=== PATIENT | female | born 1960 | race Two or more races ===

== ENCOUNTER 2017-01-03 14:13 | Inpatient (IN) | payer OTHER ==
[2017-01-03] MEDS ORDERED: ONDANSETRON 4 MG/2 ML VIAL IVPUSH ONE ×2 (14:47→16:05)
[2017-01-03] MEDS ORDERED: SODIUM CHLORIDE 1,000 ML IV STA ×2 (14:47→17:38)
[2017-01-03] MEDS ORDERED: HYDROmorphone HCL CARPU-JECT 1 MG/1 ML DISP.SYRIN IVPUSH ONE ×2 (14:47→16:05)
[2017-01-03] MEDS ORDERED: KETOROLAC TROMETHAMINE 30 MG/1 ML VIAL IVPUSH ONE (14:59)
[2017-01-03] MEDS ORDERED: ONDANSETRON 4 MG/2 ML VIAL ONE ×2 (15:02→16:14)
[2017-01-03] MEDS ORDERED: HYDROmorphone HCL CARPU-JECT 1 MG/1 ML DISP.SYRIN ONE ×2 (15:02→16:14)
[2017-01-03] MEDS ORDERED: KETOROLAC TROMETHAMINE 30 MG/1 ML VIAL ONE ×2 (15:02→15:03)
--- NOTE | 2017-01-03 15:15 | PDOC ---
History of Present Illness <Tomas Lynch - Last Filed: 01/03/17 18:45> - History of Present Illness Initial Comments: 01/03/17 15:37 The patient is a 52-year-old female with significant past medical history of hypertension, diabetes, hypercholesterolemia, and pancreatitis, who presents to the ED with complaint of right upper quadrant pain radiating to her right flank for 5 days. The patient states she had an MRI at [facility] which revealed pancreatitis about 8 months ago. The patient reportedly called Dr. Lopes office on to be seen, however, was unable to be seen by Dr. Wells, and presents today for increased pain. The patient also reports seeing Dr. Perdomo who reportedly told the patient she had stones. The patient reports having a cholecystectomy prior to learning of her stones. Upon chart review, the patient had a CT scan in 2012 revealing a mass in the head of the pancreas. She denies chest pain, shortness of breath, headache and dizziness. She denies fever, chills, nausea, vomit, diarrhea and constipation. She denies dysuria, frequency, urgency and hematuria. Allergies: NKDA Past surgical history: cholecystectomy, x2 Social history: Pt denies current tobacco use (quit 15 yrs ago from 2ppd). Pt reports occasional consumption of wine. Family History: pancreatic cancer (maternal aunt) PCP - Dr. Wells GI - Dr. Perdomo <Mitzi Jolly - Last Filed: 01/03/17 19:51> - General Chief Complaint: Pain Stated Complaint: PAIN r/o pancereatitis Time Seen by Provider: 01/03/17 14:38 Past History - Past Medical History Diabetes: Yes GI Disorders: Yes (pancreatitis) HTN: Yes - Surgical History Cholecystectomy: Yes - Suicide/Smoking/Psychosocial Hx Smoking Status: No Smoking History: Never smoked Number of Cigarettes Smoked Daily: 0 Information on smoking cessation initiated: No Hx Alcohol Use: No Drug/Substance Use Hx: No Substance Use Type: None <Tomas Lynch - Last Filed: 01/03/17 18:45> <Mitzi Jolly - Last Filed: 01/03/17 19:51> - Past Medical History Allergies/Adverse Reactions: Allergies Allergy/AdvReac Type Severity Reaction Status Date / Time No Known Allergies Allergy Verified 01/03/17 14:14 Home Medications: Ambulatory Orders Amlodipine Besylate/Benazepril [Lotrel 5-40 mg Capsule] 1 each PO DAILY Metformin HCl [Glucophage -] 500 mg PO DAILY 01/03/17 Triamterene/Hydrochlorothiazid [Triamterene-Hctz 37.5-25 mg Tb] 1 each PO DAILY 01/03/17 Ursodiol [Actigal] 300 mg PO DAILY 01/03/17 Review of Systems - Review of Systems Able to Perform ROS?: Yes Comments:: 01/03/17 15:38 GENERAL/CONSTITUTIONAL: No fever or chills. No weakness. HEAD, EYES, EARS, NOSE AND THROAT: No change in vision. No ear pain or discharge. No sore throat. CARDIOVASCULAR: No chest pain or shortness of breath. RESPIRATORY: No cough, wheezing, or hemoptysis. GASTROINTESTINAL: (+) RUQ pain radiating to right flank x 5 days. No nausea, vomiting, diarrhea or constipation. GENITOURINARY: No dysuria, frequency, or change in urination. MUSCULOSKELETAL: No joint or muscle swelling or pain. No neck or back pain. SKIN: No rash NEUROLOGIC: No headache, vertigo, loss of consciousness, or change in strength/ sensation. ENDOCRINE: No increased thirst. No abnormal weight change. HEMATOLOGIC/LYMPHATIC: No anemia, easy bleeding, or history of blood clots. ALLERGIC/IMMUNOLOGIC: No hives or skin allergy. <Mitzi Jolly - Last Filed: 01/03/17 19:51> *Physical Exam - Vital Signs Last Vital Signs Temp Pulse Resp BP Pulse Ox 98.4 F 79 18 154/86 100 01/03/17 14:15 01/03/17 14:15 01/03/17 14:15 01/03/17 14:15 01/03/17 14:15 <Tomas Lynch - Last Filed: 01/03/17 18:45> - Vital Signs Last Vital Signs Temp Pulse Resp BP Pulse Ox 98.4 F 79 18 154/86 100 01/03/17 14:15 01/03/17 14:15 01/03/17 14:15 01/03/17 14:15 01/03/17 14:15 - Physical Exam Comments: 01/03/17 15:39 GENERAL: Awake, alert, and fully oriented, in no acute distress HEAD: No signs of trauma EYES: PERRLA, EOMI, sclera anicteric, conjunctiva clear ENT: Auricles normal inspection, hearing grossly normal, nares patent, oropharynx clear without exudates. Moist mucosa NECK: Normal ROM, supple, no lymphadenopathy, JVD, or masses LUNGS: Breath sounds equal, clear to auscultation bilaterally. No wheezes, and no crackles HEART: Regular rate and rhythm, normal S1 and S2, no murmurs, rubs or gallops ABDOMEN: (+) mildly ttp to RUQ. Soft, normoactive bowel sounds. No guarding, no rebound. No masses EXTREMITIES: Normal range of motion, no edema. No clubbing or cyanosis. No cords, erythema, or tenderness NEUROLOGICAL: Cranial nerves II through XII grossly intact. Normal speech, normal gait SKIN: Warm, Dry, normal turgor, no rashes or lesions noted. <Mitzi Jolly - Last Filed: 01/03/17 19:51> ED Treatment Course - LABORATORY CBC & Chemistry Diagram: 01/03/17 15:00 01/03/17 15:00 - RADIOLOGY Radiology Studies Ordered: Category Date Time Status ABDOMEN & PELVIS CT WITH CONTR [CT] Stat CT Scan 01/03/17 14:43 Ordered <Tomas Lynch - Last Filed: 01/03/17 18:45> - LABORATORY CBC & Chemistry Diagram: 01/03/17 15:00 01/03/17 15:00 - ADDITIONAL ORDERS Additional order review: Laboratory Results 01/03/17 01/03/17 15:00 15:00 Sodium 138 Potassium 3.8 Chloride 103 Carbon Dioxide 29 Anion Gap 6 L BUN 20 H D Creatinine 1.2 H D Creat Clearance w eGFR 46.14 Random Glucose 207 H D Calcium 9.7 Total Bilirubin 0.2 D AST 8 L D ALT 19 D Alkaline Phosphatase 99 D Total Protein 7.9 Albumin 3.8 Lipase 720 H Urine Color Yellow Urine Appearance Slcloudy Urine pH 5.0 Urine Protein Negative Urine Glucose (UA) Negative Urine Ketones Negative Urine Blood Negative Urine Nitrite Negative Urine Bilirubin Negative Urine Urobilinogen Negative 01/03/17 15:00 RBC 3.94 MCV 94.6 MCHC 33.2 RDW 13.6 MPV 9.5 Neutrophils % 71.3 Lymphocytes % 21.7 Monocytes % 5.3 Eosinophils % 1.2 Basophils % 0.5 - RADIOLOGY Radiograph Interpretation: EXAM#: TYPE/EXAM: RESULT: [id number] CT/ABDOMEN PELVIS CT W/WO CONTR Rule out pancreatitis. CT scan of the abdomen and pelvis without and following intravenous contrast. Oral contrast was administered. Pancreatitis departmental protocol was follow-up. 95 cc of Visipaque 320 was intravenously injected. Compared to prior CT scan of the abdomen and pelvis dated 06/02/2012 The heart is within normal limits in size. Included lung base appears unremarkable The stomach is adequately distended without wall thickening. Evaluation of the liver and spleen appear unremarkable. Postcholecystectomy surgical metallic clips are present with minimal dilatation of the central intrahepatic bile ducts. Common bile duct is not dilated. Both adrenal glands and both kidneys appear unremarkable. The pancreas is within normal limits in size. Previously visualized focal low- attenuation density along superior margin of the pancreatic head is again seen measuring approximately 1.5 x 0.7 cm and up to -50 Hounsfield units that may represent focal fatty infiltration or a small lipoma. Peripancreatic mesentery is unremarkable without evidence of stranding or edema. There is no evidence of small bowel obstruction. Normal-appearing terminal ileum and appendix. Normal stool burden in the colon with multiple diverticula mainly in the sigmoid colon and without evidence of acute diverticulitis. Partially distended urinary bladder without wall thickening. Nonvisualization of the uterus. Both ovaries were not visualized. Visualized osseous structures appear intact with moderate degenerative disc disease at L5-S1 level. Impression: Status post cholecystectomy. There is no CT evidence of acute pancreatitis. However, a focal low- attenuation density is again seen along anterior margin of the pancreatic head measuring 1.5 x 0.8 cm and approximately -50 Hounsfield units that may represent small focal area of fatty infiltration or lipoma. Correlation with contrast-enhanced MRI of the abdomen is recommended considering prior MRI of the abdomen findings dated 06/05/2012 where an approximately 9 mm lesion in the region of the of ampulla of vater was questioned. Reported By: Mook Lozano MD 01/03/171941 - Medications Given in the ED: ED Medications Discontinued Medications Generic Name Dose Route Start Last Admin Trade Name Freq PRN Reason Stop Dose Admin Hydromorphone HCl 1 mg 01/03/17 14:47 01/03/17 15:00 Dilaudid Injection - IVPUSH 01/03/17 14:48 1 mg ONCE ONE Administration Ketorolac Tromethamine 30 mg 01/03/17 14:59 01/03/17 15:00 Toradol Injection - IVPUSH 01/03/17 15:00 30 mg ONCE ONE Administration Ondansetron HCl 4 mg 01/03/17 14:47 01/03/17 15:00 Zofran Injection IVPUSH 01/03/17 14:48 4 mg ONCE ONE Administration <Mitzi Jolly - Last Filed: 01/03/17 19:51> Medical Decision Making - Medical Decision Making 01/03/17 18:34 Dr. Gisella Weiner was paged at this time via phone answering service requesting a callback for admission of this patient for Dr. Wells. 01/03/17 18:44 Dr. Barclay returned the call and the patient's case was discussed. Dr. Barclay accepts admission of this patient with consult to Dr. Perdomo. <Mitzi Jolly - Last Filed: 01/03/17 19:51> *DC/Admit/Observation/Transfer - Discharge Dispostion Admit: Yes - Attestations Physician Attestion: 01/03/17 15:15 I, Dr. Tomas Lynch, attest that this document has been prepared under my direction and personally reviewed by me in its entirety. I further attest, that it accurately reflects all work, treatment, procedures and medical decision -making performed by me. <Tomas Lynch - Last Filed: 01/03/17 18:45> - Attestations Scribe Attestion: 01/03/17 15:39 Documentation prepared by Mitzi Jolly, acting as certified medical coder for Tomas Lynch DO <Mitzi Jolly - Last Filed: 01/03/17 19:51> Diagnosis at time of Disposition: Intractable abdominal pain Pancreatitis Qualifiers: Chronicity: acute Pancreatitis type: other Acute pancreatitis complication: unspecified Qualified Code(s): K85.80 - Other acute pancreatitis without necrosis or infection - Discharge Dispostion Disposition: HOME Condition at time of disposition: Unchanged/Unknown - Referrals Referrals: Luigi Wells MD [Primary Care Provider] -
[2017-01-03 15:22] LABS: BASOPHIL 0.5 % (0-2.0); EOSINOPHIL 1.2 % (0-4.5); MCH 31.4 pg (25.7-33.7); MCHC 33.2 g/dl (32.0-36.0); MEAN CELL VOLUME 94.6 fl (80-96); MEAN PLT VOLUME 9.5 fl (7.5-11.1); NEUTROPHILS 71.3 % (42.8-82.8); PLATELET COUNT 302 K/MM3 (134-434); RDW 13.6 % (11.6-15.6); WHITE BLOOD COUNT 9.9 K/mm3 (4.0-10.0)
[2017-01-03 15:24] LABS: URINE APPEARANCE SLCLOUDY; URINE BILIRUBIN NEGATIVE (NEGATIVE); URINE BLOOD NEGATIVE (NEGATIVE); URINE COLOR YELLOW; URINE GLUCOSE (UA) NEGATIVE (NEGATIVE); URINE KETONE NEGATIVE (NEGATIVE); URINE NITRITE NEGATIVE (NEGATIVE); URINE PROTEIN NEGATIVE (NEGATIVE); URINE UROBILINOGEN NEGATIVE mg/dL (0.2-1.0)
[2017-01-03 15:36] LABS: ALBUMIN 3.8 g/dl (3.4-5.0); ALK PHOS 99 U/L (45-117); ANION GAP 6 (8-16); BILIRUBIN,TOTAL 0.2 mg/dL (0.2-1.0); CALCIUM 9.7 mg/dL (8.5-10.1); CO2 29 mmol/L (21-32); CREATININE 1.2 mg/dL (0.55-1.02); GLUCOSE,RANDOM 207 mg/dL (74-106); SGOT/AST 8 U/L (15-37); SGPT/ALT 19 U/L (12-78); TOT PROT 7.9 g/dl (6.4-8.2)
[2017-01-03 18:13] LABS: INR 0.98 (0.82-1.09); PROTHROMBIN TIME (PATIENT) 10.8 SEC (9.98-11.88)
[2017-01-03] MEDS ORDERED: HYDROmorphone HCL CARPU-JECT 2 MG/1 ML DISP.SYRIN IVPB ONE (18:28)
[2017-01-03] MEDS ORDERED: HYDROmorphone HCL CARPU-JECT 2 MG/1 ML DISP.SYRIN ONE (18:37)
[2017-01-03 20:06] LABS: URINE LEUK ESTERASE Negative (NEGATIVE)
[2017-01-03] MEDS: SODIUM CHLORIDE 1,000 ML IV SCH (22:04)
[2017-01-03] MEDS: morphine CARPU-JECT 4 MG/1 ML DISP.SYRIN IVPUSH PRN (22:08)
[2017-01-03] MEDS ORDERED: ZOLPIDEM TARTRATE 5 MG TABLET PO PRN (22:20)
[2017-01-04 00:10] VITALS: BMI 31.6
[2017-01-04] MEDS: morphine CARPU-JECT 4 MG/1 ML DISP.SYRIN IVPUSH PRN (01:27)
[2017-01-04] MEDS: SODIUM CHLORIDE 1,000 ML IV SCH ×2 (04:04→14:27)
[2017-01-04] MEDS ORDERED: metFORMIN HCL 500 MG TABLET (FP) PO SCH (07:00)
[2017-01-04 07:31] LABS: BASOPHIL 0.4 % (0-2.0); EOSINOPHIL 1.5 % (0-4.5); MCH 31.3 pg (25.7-33.7); MCHC 33.1 g/dl (32.0-36.0); MEAN CELL VOLUME 94.4 fl (80-96); MEAN PLT VOLUME 9.3 fl (7.5-11.1); NEUTROPHILS 57.3 % (42.8-82.8); PLATELET COUNT 217 K/MM3 (134-434); RDW 13.2 % (11.6-15.6); WHITE BLOOD COUNT 6.1 K/mm3 (4.0-10.0)
[2017-01-04 07:52] LABS: ALBUMIN 2.8 g/dl (3.4-5.0); CALCIUM 8.7 mg/dL (8.5-10.1)
[2017-01-04 07:57] LABS: ALK PHOS 69 U/L (45-117); ANION GAP 8 (8-16); BILIRUBIN,TOTAL 0.3 mg/dL (0.2-1.0); CO2 25 mmol/L (21-32); CREATININE 0.8 mg/dL (0.55-1.02); GLUCOSE,RANDOM 102 mg/dL (74-106); SGOT/AST 8 U/L (15-37); SGPT/ALT 16 U/L (12-78); TOT PROT 5.8 g/dl (6.4-8.2)
[2017-01-04] MEDS ORDERED: morphine CARPU-JECT 2 MG/1 ML DISP.SYRIN IVPUSH PRN (09:13)
[2017-01-04] MEDS: URSODIOL 300 MG CAPSULE PO SCH (09:18)
[2017-01-04] MEDS: amLODIPine BESYLATE 5 MG TABLET (FP) PO SCH (09:19)
[2017-01-04] MEDS: LISINOPRIL 20 MG TABLET (FP) PO SCH (09:19)
[2017-01-04] MEDS: TRIAMTERENE AND HCTZ - 37.5 MG/25 MG CAPSULE PO SCH (09:21)
[2017-01-04] MEDS ORDERED: PT OWN MED DRAWER 7, Y5N ONE (09:21)
[2017-01-04] MEDS ORDERED: PATIENT'S OWN MEDICATION (NON-FORMULARY) (Amlodipine Besylate/Benazepril [Lotrel 5-40 Mg C PO SCH (10:00)
[2017-01-04] MEDS ORDERED: PATIENT'S OWN MEDICATION (NON-FORMULARY) (Triamterene/Hydrochlorothiazid [Triamterene-Hctz PO SCH (10:00)
--- NOTE | 2017-01-04 10:38 | HP ---
Admitting History and Physical - Primary Care Physician PCP: Luigi Wells - Admission Chief Complaint: abdominal pain History of Present Illness: -ER HISTORY-- History of Present Illness Initial Comments: 01/03/17 15:37 The patient is a 52-year-old female with significant past medical history of hypertension, diabetes, hypercholesterolemia, and pancreatitis, who presents to the ED with complaint of right upper quadrant pain radiating to her right flank for 5 days. The patient states she had an MRI at [facility] which revealed pancreatitis about 8 months ago. The patient reportedly called Dr. Lopes office on to be seen, however, was unable to be seen by Dr. Wells, and presents today for increased pain. The patient also reports seeing Dr. Perdomo who reportedly told the patient she had stones. The patient reports having a cholecystectomy prior to learning of her stones. Upon chart review, the patient had a CT scan in 2012 revealing a mass in the head of the pancreas. She denies chest pain, shortness of breath, headache and dizziness. She denies fever, chills, nausea, vomit, diarrhea and constipation. She denies dysuria, frequency, urgency and hematuria. Allergies: NKDA Past surgical history: cholecystectomy, x2 Social history: Pt denies current tobacco use (quit 15 yrs ago from 2ppd). Pt reports occasional consumption of wine. Family History: pancreatic cancer (maternal aunt) PCP - Dr. Wells GI - Dr. Perdomo Pt examined by me on the floors Severe right sided abdominal and epigastric pain for last few days- nauseous. Not related with food intake or positional changes. No fever, vomiting, diarrhea , urinary complaints. Rates it 01/04. Pain radiating to right flank Had seen by GI as an out pt 2 months ago and was placed on Actigall Denies any unusual food intake Similar history in June this year- was admitted in [facility]-- CT had shown-- prominent pancreas per pt-was teated for pancreatitis there History Source: Patient Limitations to Obtaining History: No Limitations - Past Medical History Cardiovascular: Yes: HTN Endocrine: Yes: Diabetes Mellitus - Smoking History Smoking history: Former smoker Have you smoked in the past 12 months: No Aproximately how many cigarettes per day: 0 - Alcohol/Substance Use Hx Alcohol Use: Yes Home Medications - Allergies Allergies/Adverse Reactions: Allergies Allergy/AdvReac Type Severity Reaction Status Date / Time No Known Allergies Allergy Verified 01/03/17 14:14 - Home Medications Home Medications: Ambulatory Orders Amlodipine Besylate/Benazepril [Lotrel 5-40 mg Capsule] 1 each PO DAILY Metformin HCl [Glucophage -] 500 mg PO DAILY 01/03/17 Triamterene/Hydrochlorothiazid [Triamterene-Hctz 37.5-25 mg Tb] 1 each PO DAILY 01/03/17 Ursodiol [Actigal] 300 mg PO DAILY 01/03/17 Review of Systems - Review of Systems Constitutional: denies: Chills, Fever, Loss of Appetite, Weakness Cardiovascular: denies: Chest Pain Respiratory: denies: Cough Gastrointestinal: reports: Abdominal Pain, Nausea. denies: Constipation, Diarrhea, Indigestion, Vomiting Genitourinary: denies: Burning, Discharge, Dysuria, Flank Pain, Frequency Physical Examination Vital Signs: Vital Signs Temperature 98.1 F 01/04/17 09:17 Pulse Rate 51 L 01/04/17 09:17 Respiratory Rate 18 01/04/17 09:17 Blood Pressure 113/50 01/04/17 09:17 O2 Sat by Pulse Oximetry (%) 100 01/04/17 00:04 Constitutional: Yes: Moderate Distress Cardiovascular: Yes: Regular Rate and Rhythm Respiratory: Yes: CTA Bilaterally Gastrointestinal: Yes: Normal Bowel Sounds, Soft, Abdomen, Obese, Tenderness ( right upper quadrant, epigastrium and rt flank) Edema: No Psychiatric: Yes: Alert, Oriented Labs: CBC, BMP 01/04/17 06:00 01/04/17 06:00 Imaging - Results Cat Scan: Report Reviewed EKG: Image Reviewed (NSR) Problem List - Problems (1) Intractable abdominal pain Code(s): R10.9 - UNSPECIFIED ABDOMINAL PAIN (2) Pancreatitis Code(s): K85.90 - ACUTE PANCREATITIS WITHOUT NECROSIS OR INFECTION, UNSP Qualifiers: Chronicity: acute Pancreatitis type: other Acute pancreatitis complication: unspecified Qualified Code(s): K85.80 - Other acute pancreatitis without necrosis or infection; K85.80 - Other acute pancreatitis without necrosis or infection (3) HTN (hypertension) Code(s): I10 - ESSENTIAL (PRIMARY) HYPERTENSION (4) Diabetes Code(s): E11.9 - TYPE 2 DIABETES MELLITUS WITHOUT COMPLICATIONS Assessment/Plan PLAN Keep NPO CT abd noted-- prominent pancreas-- will need to assess it further with MRI with contrast check tumor markers IV fluids Zofran as needed Pain control GI eval continue with HTN meds Hold off Metformin as she is NPO DVT prophylaxis-- Lovenox sc
[2017-01-04 13:16] LABS: CHOLESTEROL 174 mg/dL (50-200)
[2017-01-04] MEDS: HYDROmorphone HCL CARPU-JECT 2 MG/1 ML DISP.SYRIN IVPB PRN ×2 (14:28→20:27)
--- NOTE | 2017-01-04 15:31 | CON.GI ---
Consult Consult Specialty:: gastroenterology Referred by:: Dr Rossy Barclay Reason for Consultation:: abdominal pain - History of Present Illness History of Present Illness: 56 y/o F with PMH of idiopathic pancreatitis associated with ruq pain was admitted because of worsening abdominal pain. She was suppose to see Dr Gen Wolf for EUS. Eus was never done She cancelled her appointments twice. 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 She is on ARB and diuretic as an outpatient. She continue to have abdominal pain. - Past Medical History Cardio/Vascular: Yes: HTN Endocrine: Yes: Diabetes Mellitus - Alcohol/Substance Use Hx Alcohol Use: Yes - Smoking History Smoking history: Former smoker Have you smoked in the past 12 months: No Aproximately how many cigarettes per day: 0 Home Medications - Allergies Allergies/Adverse Reactions: Allergies Allergy/AdvReac Type Severity Reaction Status Date / Time No Known Allergies Allergy Verified 01/03/17 14:14 - Home Medications Home Medications: Ambulatory Orders Amlodipine Besylate/Benazepril [Lotrel 5-40 mg Capsule] 1 each PO DAILY Metformin HCl [Glucophage -] 500 mg PO DAILY 01/03/17 Triamterene/Hydrochlorothiazid [Triamterene-Hctz 37.5-25 mg Tb] 1 each PO DAILY 01/03/17 Ursodiol [Actigal] 300 mg PO DAILY 01/03/17 Review of Systems - Review of Systems Constitutional: denies: No Symptoms, Chills, Diaphoresis, Fever, Lethargy, Loss of Appetite, Malaise, Night Sweats, Unintentional Wgt. Loss, Weakness, Other Eyes: denies: No Symptoms, Blind Spots, Blurred Vision, Double Vision, Eye Pain , Floaters, Photophobia, Recent Change in Vision, Other HENT: denies: No Symptoms, Difficult Swallowing, Ear Discharge, Ear Pain, Epistaxis, Gingival Bleeding, Hearing Loss, Mouth Swelling, Nasal Congestion, Ocular Prosthesis, Throat Pain, Toothache, Ringing in Ears, Other Neck: denies: No Symptoms, Decreased ROM, Lumps, Pain on Movement, Stiffness, Swollen Glands, Tenderness, Other Cardiovascular: denies: No Symptoms, Chest Pain, Edema, Palpitations, Shortness of Breath, Other Respiratory: denies: No Symptoms, Cough, Exercise Intolerance, Hemoptysis, Orthopnea, PND, Snoring, SOB, SOB on Exertion, Wheezing, Other Gastrointestinal: reports: Abdominal Pain, Nausea, Vomiting. denies: Constipation, Diarrhea, Dysphagia, Indigestion, Rectal Bleeding Physical Exam-GI Vital Signs: Vital Signs Temperature 97.9 F 01/04/17 15:12 Pulse Rate 63 01/04/17 15:12 Respiratory Rate 18 01/04/17 15:12 Blood Pressure 131/70 01/04/17 15:12 O2 Sat by Pulse Oximetry (%) 100 01/04/17 09:00 Constitutional: Yes: Well Nourished, Poor Hygeine Eyes: Yes: Occular Prosthesis HENT: Yes: Tonsillar Exudate Cardiovascular: Yes: Regular Rate and Rhythm Respiratory: Yes: CTA Bilaterally ...Palpate: Yes: Soft, Tenderness, Epigastium. No: Firm/Rigid, Guarding, Hepatomegaly, Mass, Pulsatile Mass, Splenomegaly, Tenderness Edema: No Labs: CBC, BMP 01/04/17 06:00 01/04/17 06:00 INR, PTT INR 0.98 (0.82-1.09) 01/03/17 15:00 Hepatic Panel Total Bilirubin 0.3 mg/dL (0.2-1.0) D 01/04/17 06:00 AST 8 U/L (15-37) L 01/04/17 06:00 ALT 16 U/L (12-78) 01/04/17 06:00 Alkaline Phosphatase 69 U/L (45-117) D 01/04/17 06:00 Albumin 2.8 g/dl (3.4-5.0) L D 01/04/17 06:00 CBCD WBC 6.1 K/mm3 (4.0-10.0) D 01/04/17 06:00 RBC 3.12 M/mm3 (3.60-5.2) L D 01/04/17 06:00 Hgb 9.8 GM/dL (10.7-15.3) L D 01/04/17 06:00 Hct 29.5 % (32.4-45.2) L D 01/04/17 06:00 MCV 94.4 fl (80-96) 01/04/17 06:00 MCHC 33.1 g/dl (32.0-36.0) 01/04/17 06:00 RDW 13.2 % (11.6-15.6) 01/04/17 06:00 Plt Count 217 K/MM3 (134-434) D 01/04/17 06:00 MPV 9.3 fl (7.5-11.1) 01/04/17 06:00 CMP Sodium 141 mmol/L (136-145) 01/04/17 06:00 Potassium 3.9 mmol/L (3.5-5.1) 01/04/17 06:00 Chloride 108 mmol/L (98-107) H 01/04/17 06:00 Carbon Dioxide 25 mmol/L (21-32) 01/04/17 06:00 Anion Gap 8 (8-16) 01/04/17 06:00 BUN 16 mg/dL (7-18) 01/04/17 06:00 Creatinine 0.8 mg/dL (0.55-1.02) D 01/04/17 06:00 Creat Clearance w eGFR > 60 (>60) 01/04/17 06:00 Random Glucose 102 mg/dL (74-106) D 01/04/17 06:00 Calcium 8.7 mg/dL (8.5-10.1) 01/04/17 06:00 Total Bilirubin 0.3 mg/dL (0.2-1.0) D 01/04/17 06:00 AST 8 U/L (15-37) L 01/04/17 06:00 ALT 16 U/L (12-78) 01/04/17 06:00 Alkaline Phosphatase 69 U/L (45-117) D 01/04/17 06:00 Total Protein 5.8 g/dl (6.4-8.2) L D 01/04/17 06:00 Albumin 2.8 g/dl (3.4-5.0) L D 01/04/17 06:00 Imaging - Results MRI: Report Reviewed Problem List - Problems (1) Intractable abdominal pain Assessment/Plan: r/o peptic ulcer diseae > IV PPI EGD as an outpatient Code(s): R10.9 - UNSPECIFIED ABDOMINAL PAIN (2) Idiopathic pancreatitis Assessment/Plan: RON is negative r/o drug induced R> avoid ARB, du=iuretics and statins d/c actigall Code(s): K85.00 - IDIOPATHIC ACUTE PANCREATITIS WITHOUT NECROSIS OR INFECTION
[2017-01-04] MEDS: ONDANSETRON 4 MG/2 ML VIAL IVPB PRN (16:45)
--- NOTE | 2017-01-04 18:11 | PN ---
Progress Note (short form) - Note Progress Note: came to see patient, the patient was in Mri
[2017-01-05] MEDS: HYDROmorphone HCL CARPU-JECT 2 MG/1 ML DISP.SYRIN IVPB PRN ×3 (08:52→20:00)
[2017-01-05] MEDS: ENOXAPARIN NA (PORCINE) 40 MG/0.4 ML DISP.SYRIN SQ SCH (10:11)
[2017-01-05] MEDS: LISINOPRIL 20 MG TABLET (FP) PO SCH (10:11)
[2017-01-05] MEDS: TRIAMTERENE AND HCTZ - 37.5 MG/25 MG CAPSULE PO SCH (10:11)
[2017-01-05] MEDS: URSODIOL 300 MG CAPSULE PO SCH (10:11)
[2017-01-05] MEDS: amLODIPine BESYLATE 5 MG TABLET (FP) PO SCH (10:12)
[2017-01-05] MEDS: SODIUM CHLORIDE 1,000 ML IV SCH ×3 (10:21→19:46)
--- NOTE | 2017-01-05 10:26 | PN ---
Progress Note, Physician Chief Complaint: pain better with pain medication She asking me why she's getting it every 6 hours no nausea - Current Medication List Current Medications: Active Medications Amlodipine Besylate (Norvasc -) 5 mg PO DAILY [facility] Last Admin: 01/05/17 10:12 Dose: 5 mg Enoxaparin Sodium (Lovenox -) 40 mg SQ DAILY [facility] Last Admin: 01/05/17 10:11 Dose: 40 mg Hydromorphone HCl (Dilaudid Injection -) 2 mg IVPB Q6H PRN PRN Reason: PAIN Last Admin: 01/05/17 08:52 Dose: 2 mg Sodium Chloride (Normal Saline -) 1,000 mls @ 125 mls/hr IV ASDIR [facility] Last Admin: 01/05/17 10:21 Dose: 125 mls/hr Lisinopril (Prinivil) 40 mg PO DAILY [facility] Last Admin: 01/05/17 10:11 Dose: 40 mg Ondansetron HCl (Zofran Injection) 4 mg IVPB Q6H PRN PRN Reason: NAUSEA AND/OR VOMITING Last Admin: 01/04/17 16:45 Dose: 4 mg Triamterene/HCTZ (Dyazide 25/37.5mg) 1 cap PO DAILY [facility] Last Admin: 01/05/17 10:11 Dose: 1 cap Ursodiol (Actigal -) 300 mg PO DAILY [facility] Last Admin: 01/05/17 10:11 Dose: 300 mg Zolpidem Tartrate (Ambien -) 5 mg PO HS PRN Last Admin: 01/03/17 22:29 Dose: 5 mg - Objective Vital Signs: Vital Signs Temperature 98.7 F 01/05/17 05:17 Pulse Rate 56 L 01/05/17 05:17 Respiratory Rate 20 01/05/17 05:17 Blood Pressure 116/59 01/05/17 05:17 O2 Sat by Pulse Oximetry (%) 96 01/04/17 21:00 Constitutional: Yes: No Distress Cardiovascular: Yes: Regular Rate and Rhythm Respiratory: Yes: CTA Bilaterally Gastrointestinal: Yes: Normal Bowel Sounds, Soft, Abdomen, Obese, Tenderness ( epigastric and right upper quadrant pain). No: Distention Edema: No Psychiatric: Yes: Alert, Oriented Labs: CBC, BMP 01/04/17 06:00 01/04/17 06:00 INR, PTT INR 0.98 (0.82-1.09) 01/03/17 15:00 Problem List - Problems (1) Intractable abdominal pain Code(s): R10.9 - UNSPECIFIED ABDOMINAL PAIN (2) Pancreatitis Code(s): K85.90 - ACUTE PANCREATITIS WITHOUT NECROSIS OR INFECTION, UNSP Qualifiers: Chronicity: acute Pancreatitis type: other Acute pancreatitis complication: unspecified Qualified Code(s): K85.80 - Other acute pancreatitis without necrosis or infection; K85.80 - Other acute pancreatitis without necrosis or infection (3) HTN (hypertension) Code(s): I10 - ESSENTIAL (PRIMARY) HYPERTENSION (4) Diabetes Code(s): E11.9 - TYPE 2 DIABETES MELLITUS WITHOUT COMPLICATIONS Assessment/Plan PLAN start clears CT abd noted-- prominent pancreas-- had MRI with contrast tumor markers- negative IV fluids Zofran as needed Pain control GI eval noted MRI done-- no official read continue with HTN meds decrease Dilaudid 1mg q6h DVT prophylaxis-- Lovenox sc
[2017-01-05] MEDS: ONDANSETRON 4 MG/2 ML VIAL IVPB PRN (12:43)
[2017-01-05] MEDS ORDERED: amLODIPine BESYLATE 5 MG TABLET (FP) PO SCH (19:06)
[2017-01-05] MEDS ORDERED: ONDANSETRON 4 MG/2 ML VIAL IVPB PRN (19:11)
[2017-01-05] MEDS ORDERED: PT OWN MED DRAWER 7, Y5N ONE (19:51)
[2017-01-05] MEDS: METOCLOPRAMIDE HCL INJECTION 10 MG/2 ML VIAL IVPB SCH (20:17)
[2017-01-05] MEDS: PANTOPRAZOLE SODIUM 40 MG in SODIUM CHLORIDE 100 ML IVPB SCH (21:57)
[2017-01-06] MEDS: METOCLOPRAMIDE HCL INJECTION 10 MG/2 ML VIAL IVPB SCH ×2 (01:17→10:12)
[2017-01-06] MEDS: SODIUM CHLORIDE 1,000 ML IV SCH ×2 (06:32→15:07)
[2017-01-06] MEDS ORDERED: PT OWN MED DRAWER 7, Y5N ONE (09:41)
[2017-01-06] MEDS: ENOXAPARIN NA (PORCINE) 40 MG/0.4 ML DISP.SYRIN SQ SCH (10:08)
[2017-01-06] MEDS: PANTOPRAZOLE SODIUM 40 MG in SODIUM CHLORIDE 100 ML IVPB SCH (10:08)
[2017-01-06] MEDS: HYDROmorphone HCL CARPU-JECT 2 MG/1 ML DISP.SYRIN IVPB PRN (10:26)
--- NOTE | 2017-01-06 11:43 | DS ---
Physical Examination Vital Signs: Vital Signs Temperature 98.2 F 01/06/17 06:00 Pulse Rate 48 L 01/06/17 09:00 Respiratory Rate 18 01/06/17 09:00 Blood Pressure 148/76 01/06/17 09:00 O2 Sat by Pulse Oximetry (%) 96 01/05/17 20:28 Constitutional: Yes: No Distress, Calm Cardiovascular: Yes: Regular Rate and Rhythm Respiratory: Yes: CTA Bilaterally Gastrointestinal: Yes: Normal Bowel Sounds, Soft, Tenderness (rt quadrant) Labs: CBC, BMP 01/04/17 06:00 01/04/17 06:00 Discharge Summary Reason For Visit: PANCREATITIS Current Active Problems Diabetes (Acute) HTN (hypertension) (Acute) Idiopathic pancreatitis (Acute) Intractable abdominal pain (Acute) Pancreatitis (Acute) Hospital Course: Admitted for rt abdominal pain -- felt to be due to pancreatitis-- was on iv fluids and pain control Seen by GI-- MRI abd done-- showed lipoma at the pancreas Pain is better but desizing machine back tender tolerating soft diet stable for dc home-- she will need to follow up with Dr Johnson-- plan for EUS in [facility] Condition: Improved - Instructions Referrals: Luigi Wells MD [Primary Care Provider] - Rohit Johnson MD [Staff Physician] - Disposition: HOME - Home Medications Comprehensive Discharge Medication List: Ambulatory Orders Metformin HCl [Glucophage -] 500 mg PO DAILY 01/03/17 Ursodiol [Actigal -] 300 mg PO DAILY 01/03/17 Amlodipine Besylate [Norvasc -] 10 mg PO DAILY #30 tablet 01/06/17 Metoclopramide HCl [Reglan] 10 mg PO TID #60 tablet 01/06/17 Pantoprazole Sodium [Protonix] 40 mg PO BID #20 tablet. 01/06/17
[2017-01-06 14:07] VITALS: BP 108/55; PULSE 51; TEMP 98.1
== END 2017-01-06 16:06 | disposition home or self-care (01) | DRG 282 ==
LOC: JER 14:13 → JERBED 18:46 → J7W 21:07
PROVIDERS: ADMIT Internal Medicine; ATTEND Internal Medicine
DX: K85.00 Idiopathic acute pancreatitis without necrosis or infection (principal); I10 Essential (primary) hypertension; E11.9 Type 2 diabetes mellitus without complications; E66.9 Obesity, unspecified; Z68.31 Body mass index [BMI] 31.0-31.9, adult; K76.0 Fatty (change of) liver, not elsewhere classified; E78.5 Hyperlipidemia, unspecified; R10.9 Unspecified abdominal pain
CPT/HCPCS: 36415; 74178-TC; 74182-TC; 80053; 80061; 81003; 82378; 83690; 83721; 85025; 85610; 86301; 87086; 99282-25; Q9967

== ENCOUNTER 2017-03-06 20:18 | Emergency (ER) | payer OTHER ==
--- NOTE | 2017-03-06 20:25 | PDOC ---
History of Present Illness - General Stated Complaint: ABDOMINAL PAIN Time Seen by Provider: 03/06/17 20:19 - History of Present Illness Initial Comments: 03/06/17 20:21 57 yo F with h/o HTN, NIDDM, HLD, cholycystectomy, and recent admission for pancreatitis ( 01/03-01/06) who presents with abdominal pain. Patient reports sudden onset of sharp, unremitting, stabbing, RUQ pain beginning 48 hours ago and worsening in severity. Pain worse with movement and deep inhalation. Endorses nausea without vomiting and radiation pain to the right side and back. + Lightheadedness, and decreased appetite. Denies fevers/chills, SOB, diarrhea, constipation, BPR, dysuria, hematuria. Pain is refractory to Tylenol. States that diet has been consistent with vegetables, rice, and beans. Denies postprandial pain. Alcohol use on social occasions. Last alcohol intake 6 months ago. PCP is Dr. Wells and GI physician Dr. Johnson. Recent admission for idiopathic acute pancreatitis without necrosis or infection (01/03-01/06) . MCRP (01/05/17) Prominent pancreatic head containing 2.6 x 1.2 cm fat intensity consistent with lipoma. Had negative tumor markers. EGD as outpatient with absent evidence of PUD. Past History - Past Medical History Allergies/Adverse Reactions: Allergies Allergy/AdvReac Type Severity Reaction Status Date / Time No Known Allergies Allergy Verified 03/06/17 20:23 Home Medications: Ambulatory Orders Metformin HCl [Glucophage -] 500 mg PO DAILY 01/03/17 Ursodiol [Actigal -] 300 mg PO DAILY 01/03/17 Amlodipine Besylate [Norvasc -] 10 mg PO DAILY #30 tablet 01/06/17 Metoclopramide HCl [Reglan] 10 mg PO TID #60 tablet 01/06/17 Oxycodone HCl 5 mg PO Q8H #10 tablet MDD 3 01/06/17 Pantoprazole Sodium [Protonix] 40 mg PO BID #20 tablet. 01/06/17 Diabetes: Yes GI Disorders: Yes (pancreatitis) HTN: Yes - Surgical History Cholecystectomy: Yes - Suicide/Smoking/Psychosocial Hx Smoking Status: No Smoking History: Former smoker Have you smoked in the past 12 months: No Number of Cigarettes Smoked Daily: 0 Hx Alcohol Use: Yes Drug/Substance Use Hx: No Substance Use Type: Alcohol Hx Substance Use Treatment: No Review of Systems - Review of Systems Comments:: 03/06/17 20:25 GENERAL/CONSTITUTIONAL: No fever or chills. No weakness. HEAD, EYES, EARS, NOSE AND THROAT: No change in vision. No ear pain or discharge. No sore throat.- CARDIOVASCULAR: No chest pain or shortness of breath RESPIRATORY: No cough, wheezing, or hemoptysis. GASTROINTESTINAL: Abdominal pain and nausea. No vomiting, diarrhea or constipation. GENITOURINARY: No dysuria, frequency, or change in urination. MUSCULOSKELETAL: No joint or muscle swelling or pain. No neck or back pain. SKIN: No rash NEUROLOGIC: No headache, vertigo, loss of consciousness, or change in strength/ sensation. ENDOCRINE: No increased thirst. No abnormal weight change HEMATOLOGIC/LYMPHATIC: No anemia, easy bleeding, or history of blood clots. ALLERGIC/IMMUNOLOGIC: No hives or skin allergy. *Physical Exam - Physical Exam Comments: 03/06/17 20:25 GENERAL: Awake, alert, and fully oriented, in no acute distress HEAD: No signs of trauma, normocephalic, atraumatic EYES: PERRLA, EOMI, sclera anicteric, conjunctiva clear ENT: Hearing grossly normal, nares patent, oropharynx clear without exudates. Moist mucosa NECK: Normal ROM, supple, no lymphadenopathy, JVD, or masses LUNGS: No distress, speaks full sentences, clear to auscultation bilaterally HEART: Regular rate and rhythm, normal S1 and S2, no murmurs, rubs or gallops, peripheral pulses normal and equal bilaterally. ABDOMEN: Abdomen distended. Negative Lynndyl/periumbilical ecchymossis and tunrer /flank ecchymosis. Soft, RUQ ttp, normoactive bowel sounds. No guarding, no rebound. No masses. Neg surapubic ttp. EXTREMITIES : Normal inspection, Normal range of motion, no edema. No clubbing or cyanosis. SKIN: Warm, Dry, normal turgor, no rashes or lesions noted. ED Treatment Course - LABORATORY CBC & Chemistry Diagram: 03/06/17 21:05 03/06/17 21:05 Medical Decision Making - Medical Decision Making 03/06/17 20:54 57 yo F with h/o HTN, NIDDM, HLD, cholycystectomy, and recent admission for pancreatitis ( 01/03-01/06) who arrives EMS with sudden onset of sharp, unremitting, stabbing, RUQ pain beginning 48 hours ago and worsening in severity , with radiation to right side and back. Pain worse with movement and deep inhalation. + Nausea without vomiting, decreased appetite, and lightheadedness. Denies fevers/chills, SOB, diarrhea, constipation, BPR, dysuria, hematuria. Pain refractory to Tylenol. No change in diet and denies alcohol intake. Recent admission for idiopathic acute pancreatitis without necrosis or infection (01/03-01/06). MCRP (01/05/17) Prominent pancreatic head containing 2.6 x 1.2 cm fat intensity consistent with lipoma. Had negative tumor markers. EGD as outpatient with absent evidence of PUD. Physical exam notable for RUQ ttp. Patient expressing severe RUQ abdominal pain and nausea consistent with pancreatitis vs gallbladder etiology ( unlikely s/p choleycsytectomy), but will consider common bile duct obstruction. Also consider PUD. PCP Dr. Wells GI physician Dr. Johnson ED Course: CBC, CMP, Lipase, UA Hydromorphone 0.5 mg Zofran IVPB 4 mg, NS 1 L 03/06/17 21:48 Lipase 528 ( 228 01/05) BUN 16 Calcium 8.9 WBC 8.5 03/06/17 21:51 1 Point Valerie Criteria prior to admission BISAP of score of 0 03/06/17 22:[address] Johnson answering service.Dr. Resendez (cement mason apprentice) text. 03/06/17 22:06 Dr. Resendez recommends outpatient endoscopic ultrasound with somewhat benign lipase and recurrent/chronic pancreatitis. Does not believe this patient needs to be admitted. 03/06/17 22:41 UA: Negative Pt. with contd pain. Hydromorphone 0.5 mg. 03/06/17 22:54 Triglycerides 93 03/06/17 23:09 Hospitalist cement mason apprentice for Dr. Barclay/Husam who is cement mason apprentice for Dr. Wells (PCP). Microblogged Hospitalist. 03/06/17 23:[address] Sellers Med/Surg. *DC/Admit/Observation/Transfer Diagnosis at time of Disposition: Pancreatitis Qualifiers: Chronicity: chronic Pancreatitis type: idiopathic Qualified Code(s): K86.1 - Other chronic pancreatitis - Discharge Dispostion Admit: Yes - Referrals Referrals: Luigi Wells MD [Primary Care Provider] - - Patient Instructions - Post Discharge Activity
[2017-03-06] MEDS ORDERED: HYDROmorphone HCL CARPU-JECT 1 MG/1 ML DISP.SYRIN IVPUSH ONE ×2 (20:36→22:25)
[2017-03-06] MEDS ORDERED: SODIUM CHLORIDE 1,000 ML IV STA (20:39)
[2017-03-06] MEDS ORDERED: ONDANSETRON 4 MG/2 ML VIAL IVPB ONE (20:46)
[2017-03-06] MEDS ORDERED: HYDROmorphone HCL CARPU-JECT 1 MG/1 ML DISP.SYRIN ONE ×2 (20:49→22:33)
[2017-03-06] MEDS ORDERED: ONDANSETRON 4 MG/2 ML VIAL ONE (20:49)
[2017-03-06 21:10] VITALS: TEMP 98.7; BMI 31.6
[2017-03-06 21:12] LABS: BASOPHIL 0.5 % (0-2.0); EOSINOPHIL 1.6 % (0-4.5); MCH 30.9 pg (25.7-33.7); MCHC 33.5 g/dl (32.0-36.0); MEAN CELL VOLUME 92.1 fl (80-96); NEUTROPHILS 67.8 % (42.8-82.8); PLATELET COUNT 265 K/MM3 (134-434); RDW 13.4 % (11.6-15.6); WHITE BLOOD COUNT 8.5 K/mm3 (4.0-10.0)
[2017-03-06 21:33] LABS: ALBUMIN 3.9 g/dl (3.4-5.0); ANION GAP 7 (8-16); BILIRUBIN,TOTAL 0.2 mg/dL (0.2-1.0); CALCIUM 8.9 mg/dL (8.5-10.1); CO2 28 mmol/L (21-32); CREATININE 0.9 mg/dL (0.55-1.02); GLUCOSE,RANDOM 164 mg/dL (74-106); SGPT/ALT 22 U/L (12-78)
[2017-03-06 21:34] LABS: ALK PHOS 101 U/L (45-117)
[2017-03-06 21:35] LABS: SGOT/AST 9 U/L (15-37)
[2017-03-06 22:35] LABS: URINE APPEARANCE CLEAR; URINE BILIRUBIN NEGATIVE (NEGATIVE); URINE BLOOD 1+ (NEGATIVE); URINE COLOR STRAW; URINE GLUCOSE (UA) NEGATIVE (NEGATIVE); URINE KETONE NEGATIVE (NEGATIVE); URINE LEUK ESTERASE TRACE (NEGATIVE); URINE NITRITE NEGATIVE (NEGATIVE); URINE PROTEIN NEGATIVE (NEGATIVE); URINE UROBILINOGEN NEGATIVE mg/dL (0.2-1.0)
[2017-03-06 22:37] LABS: URINE BACTERIA RARE /hpf (NONE SEEN); URINE RBC 1 /hpf (0-3); URINE WBC 1 /hpf (3-5)
--- NOTE | 2017-03-07 01:49 | PDOC ---
Attending Attestation - Resident Resident Name: De Villegas - ED Attending Attestation I have performed the following: I have examined & evaluated the patient, The case was reviewed & discussed with the resident, I agree w/resident's findings & plan, Exceptions are as noted - HPI HPI: 03/07/17 01:47 57 yo female with mid abdominal pain radiating to rt flank. she has been treated for pancreatitis in the psat and is followed by Dr Banegas for abd pain. she has a recent endosdcopy that was negative, Aslo she has had numerous ct scan for thsi pain - Physicial Exam PE: 03/07/17 01:49 57 wnwd female w mid abdominal pain head ncat neck supple lungs cta b/l cvs [id number] abd mild mid sided abd pain EXT NO E/C/C NEURO AXO x3 ,no focal neuro deficits skin warm and dry psych appropriate 03/07/17 23:58 - Medical Decision Making Dr Rahul aguilar [facility] this pt has h/o chronic pancreatitis pt signed out ,awaiting ct scan
[2017-03-07] MEDS ORDERED: HYDROmorphone HCL CARPU-JECT 2 MG/1 ML DISP.SYRIN IVPUSH ONE (03:05)
[2017-03-07] MEDS ORDERED: HYDROmorphone HCL CARPU-JECT 2 MG/1 ML DISP.SYRIN ONE (03:40)
[2017-03-07 03:50] LABS: TROPONIN I 0.02 ng/ml (0.00-0.05)
[2017-03-07 04:21] VITALS: BP 177/89; PULSE 55
--- NOTE | 2017-03-07 07:59 | PDOC ---
*Physical Exam - Vital Signs Last Vital Signs Temp Pulse Resp BP Pulse Ox 98.7 F 55 L 18 177/89 100 03/06/17 20:23 03/07/17 03:20 03/07/17 03:20 03/07/17 03:20 03/07/17 03:20 <Denys Mendenhall - Last Filed: 03/07/17 08:19> - Vital Signs Last Vital Signs Temp Pulse Resp BP Pulse Ox 98.7 F 55 L 18 177/89 100 03/06/17 20:23 03/07/17 03:20 03/07/17 03:20 03/07/17 03:20 03/07/17 03:20 - Physical Exam General Appearance: Yes: Appropriately Dressed, Apparent Distress Cardiovascular: positive: Regular Rhythm, Regular Rate Gastrointestinal/Abdominal: positive: Soft. negative: Distended, Guarding, Tenderness <[place],Omaira - Last Filed: 03/07/17 09:28> ED Treatment Course - LABORATORY CBC & Chemistry Diagram: 03/06/17 21:05 03/06/17 21:05 - ADDITIONAL ORDERS Additional order review: Laboratory Results 03/06/17 03/06/17 03/06/17 22:22 21:05 21:05 Sodium 138 Potassium 3.9 Chloride 103 Carbon Dioxide 28 Anion Gap 7 L BUN 16 Creatinine 0.9 Creat Clearance w eGFR > 60 Random Glucose 164 H D Calcium 8.9 Total Bilirubin 0.2 D AST 9 L ALT 22 D Alkaline Phosphatase 101 D Total Protein 8.0 D Albumin 3.9 D Triglycerides Lipase 528 H Urine Color Straw Urine Appearance Clear Urine pH 7.0 D Ur Specific [place] 1.008 Urine Protein Negative Urine Glucose (UA) Negative Urine Ketones Negative Urine Blood 1+ H Urine Nitrite Negative Urine Bilirubin Negative Urine Urobilinogen Negative Urine WBC (Auto) 1 Urine RBC (Auto) 1 Ur Epithelial Cells Rare Urine Bacteria Rare 03/06/17 20:05 Sodium Potassium Chloride Carbon Dioxide Anion Gap BUN Creatinine Creat Clearance w eGFR Random Glucose Calcium Total Bilirubin AST ALT Alkaline Phosphatase Total Protein Albumin Triglycerides 93 Lipase Urine Color Urine Appearance Urine pH Ur Specific [place] Urine Protein Urine Glucose (UA) Urine Ketones Urine Blood Urine Nitrite Urine Bilirubin Urine Urobilinogen Urine WBC (Auto) Urine RBC (Auto) Ur Epithelial Cells Urine Bacteria 03/06/17 21:05 RBC 4.07 MCV 92.1 MCHC 33.5 RDW 13.4 MPV 9.0 Neutrophils % 67.8 Lymphocytes % 24.4 D Monocytes % 5.7 Eosinophils % 1.6 Basophils % 0.5 - Medications Given in the ED: ED Medications Discontinued Medications Generic Name Dose Route Start Last Admin Trade Name Ada PRN Reason Stop Dose Admin Hydromorphone HCl 0.5 mg 03/06/17 20:36 03/06/17 21:04 Dilaudid Injection - IVPUSH 03/06/17 20:37 0.5 mg ONCE ONE Administration Hydromorphone HCl 0.5 mg 03/06/17 22:25 03/06/17 22:34 Dilaudid Injection - IVPUSH 03/06/17 22:26 0.5 mg ONCE ONE Administration Hydromorphone HCl 2 mg 03/07/17 03:05 03/07/17 03:47 Dilaudid Injection - IVPUSH 03/07/17 03:06 2 mg ONCE ONE Administration Sodium Chloride 1,000 mls @ 1,000 mls/hr 03/06/17 20:39 03/06/17 21:04 Normal Saline - IV 03/06/17 21:38 1,000 mls/hr ASDIR STA Administration Ondansetron HCl 4 mg 03/06/17 20:46 03/06/17 21:04 Zofran Injection IVPB 03/06/17 20:47 4 mg ONCE ONE Administration Oxycodone/Acetaminophen 1 combo 03/07/17 01:32 03/07/17 02:33 Percocet 5/325 - PO 03/07/17 01:33 1 combo ONCE ONE Administration <Denys Mendenhall - Last Filed: 03/07/17 08:19> - LABORATORY CBC & Chemistry Diagram: 03/06/17 21:05 03/06/17 21:05 - ADDITIONAL ORDERS Additional order review: Laboratory Results 03/06/17 03/06/17 03/06/17 22:22 21:05 21:05 Sodium 138 Potassium 3.9 Chloride 103 Carbon Dioxide 28 Anion Gap 7 L BUN 16 Creatinine 0.9 Creat Clearance w eGFR > 60 Random Glucose 164 H D Calcium 8.9 Total Bilirubin 0.2 D AST 9 L ALT 22 D Alkaline Phosphatase 101 D Total Protein 8.0 D Albumin 3.9 D Triglycerides Lipase 528 H Urine Color Straw Urine Appearance Clear Urine pH 7.0 D Ur Specific [place] 1.008 Urine Protein Negative Urine Glucose (UA) Negative Urine Ketones Negative Urine Blood 1+ H Urine Nitrite Negative Urine Bilirubin Negative Urine Urobilinogen Negative Urine WBC (Auto) 1 Urine RBC (Auto) 1 Ur Epithelial Cells Rare Urine Bacteria Rare 03/06/17 20:05 Sodium Potassium Chloride Carbon Dioxide Anion Gap BUN Creatinine Creat Clearance w eGFR Random Glucose Calcium Total Bilirubin AST ALT Alkaline Phosphatase Total Protein Albumin Triglycerides 93 Lipase Urine Color Urine Appearance Urine pH Ur Specific [place] Urine Protein Urine Glucose (UA) Urine Ketones Urine Blood Urine Nitrite Urine Bilirubin Urine Urobilinogen Urine WBC (Auto) Urine RBC (Auto) Ur Epithelial Cells Urine Bacteria 03/06/17 21:05 RBC 4.07 MCV 92.1 MCHC 33.5 RDW 13.4 MPV 9.0 Neutrophils % 67.8 Lymphocytes % 24.4 D Monocytes % 5.7 Eosinophils % 1.6 Basophils % 0.5 - Medications Given in the ED: ED Medications Discontinued Medications Generic Name Dose Route Start Last Admin Trade Name Tylerq PRN Reason Stop Dose Admin Hydromorphone HCl 0.5 mg 03/06/17 20:36 03/06/17 21:04 Dilaudid Injection - IVPUSH 03/06/17 20:37 0.5 mg ONCE ONE Administration Hydromorphone HCl 0.5 mg 03/06/17 22:25 03/06/17 22:34 Dilaudid Injection - IVPUSH 03/06/17 22:26 0.5 mg ONCE ONE Administration Hydromorphone HCl 2 mg 03/07/17 03:05 03/07/17 03:47 Dilaudid Injection - IVPUSH 03/07/17 03:06 2 mg ONCE ONE Administration Sodium Chloride 1,000 mls @ 1,000 mls/hr 03/06/17 20:39 03/06/17 21:04 Normal Saline - IV 03/06/17 21:38 1,000 mls/hr ASDIR STA Administration Ondansetron HCl 4 mg 03/06/17 20:46 03/06/17 21:04 Zofran Injection IVPB 03/06/17 20:47 4 mg ONCE ONE Administration Oxycodone/Acetaminophen 1 combo 03/07/17 01:32 03/07/17 02:33 Percocet 5/325 - PO 03/07/17 01:33 1 combo ONCE ONE Administration <Omaira Oliveira - Last Filed: 03/07/17 09:28> Medical Decision Making - Medical Decision Making 03/07/17 08:17 57yo woman with chronic pancreatitis. Patient's pain is well controlled. Her vital signs are stable, and she can be discharged home with close follow-up with Dr. Johnson. We discussed all laboratory and imaging results, and she agreed to call Dr. Johnson today to set up an appointment within the next 1-2 days. Instructed to maintain clear liquid diet for the next 2 days, and provided pain control medication for 2 days. <Omaira Oliveira - Last Filed: 03/07/17 09:28> *DC/Admit/Observation/Transfer <Denys Mendenhall - Last Filed: 03/07/17 08:19> - Discharge Dispostion Admit: No <Omaira Oliveira - Last Filed: 03/07/17 09:28> Diagnosis at time of Disposition: Abdominal pain Pancreatitis Qualifiers: Chronicity: chronic Pancreatitis type: idiopathic Qualified Code(s): K86.1 - Other chronic pancreatitis - Discharge Dispostion Disposition: HOME Condition at time of disposition: Stable - Prescriptions Prescriptions: Tramadol HCl 50 mg PO TID #6 tablet MDD 3 - Referrals Referrals: Rohit Johnson MD [Staff Physician] - Luigi Wells MD [Primary Care Provider] - - Patient Instructions Printed Discharge Instructions: DI for Abdominal Pain-Adult Additional Instructions: Please call Dr. Johnson, your [place], today, and make an appointment to see him within the next 1-2 days. You should have a clear liquid diet for the next two days. You can take 1 tablet of Tramadol three times per day for your pain. Please return to the Emergency Department if your symptoms worsen, you can not keep down any food, or have new or concerning symptoms, fever, vomiting or any concerns.
--- NOTE | 2017-03-07 08:19 | PDOC ---
*Physical Exam - Vital Signs Last Vital Signs Temp Pulse Resp BP Pulse Ox 98.7 F 55 L 18 177/89 100 03/06/17 20:23 03/07/17 03:20 03/07/17 03:20 03/07/17 03:20 03/07/17 03:20 - Physical Exam Cardiovascular: positive: Regular Rhythm Gastrointestinal/Abdominal: positive: Normal Bowel Sounds. negative: Tender, Guarding, Rebound ED Treatment Course - LABORATORY CBC & Chemistry Diagram: 03/06/17 21:05 03/06/17 21:05 - ADDITIONAL ORDERS Additional order review: Laboratory Results 03/06/17 03/06/17 03/06/17 22:22 21:05 21:05 Sodium 138 Potassium 3.9 Chloride 103 Carbon Dioxide 28 Anion Gap 7 L BUN 16 Creatinine 0.9 Creat Clearance w eGFR > 60 Random Glucose 164 H D Calcium 8.9 Total Bilirubin 0.2 D AST 9 L ALT 22 D Alkaline Phosphatase 101 D Total Protein 8.0 D Albumin 3.9 D Triglycerides Lipase 528 H Urine Color Straw Urine Appearance Clear Urine pH 7.0 D Ur Specific [place] 1.008 Urine Protein Negative Urine Glucose (UA) Negative Urine Ketones Negative Urine Blood 1+ H Urine Nitrite Negative Urine Bilirubin Negative Urine Urobilinogen Negative Urine WBC (Auto) 1 Urine RBC (Auto) 1 Ur Epithelial Cells Rare Urine Bacteria Rare 03/06/17 20:05 Sodium Potassium Chloride Carbon Dioxide Anion Gap BUN Creatinine Creat Clearance w eGFR Random Glucose Calcium Total Bilirubin AST ALT Alkaline Phosphatase Total Protein Albumin Triglycerides 93 Lipase Urine Color Urine Appearance Urine pH Ur Specific [place] Urine Protein Urine Glucose (UA) Urine Ketones Urine Blood Urine Nitrite Urine Bilirubin Urine Urobilinogen Urine WBC (Auto) Urine RBC (Auto) Ur Epithelial Cells Urine Bacteria 03/06/17 21:05 RBC 4.07 MCV 92.1 MCHC 33.5 RDW 13.4 MPV 9.0 Neutrophils % 67.8 Lymphocytes % 24.4 D Monocytes % 5.7 Eosinophils % 1.6 Basophils % 0.5 - Medications Given in the ED: ED Medications Discontinued Medications Generic Name Dose Route Start Last Admin Trade Name Freq PRN Reason Stop Dose Admin Hydromorphone HCl 0.5 mg 03/06/17 20:36 03/06/17 21:04 Dilaudid Injection - IVPUSH 03/06/17 20:37 0.5 mg ONCE ONE Administration Hydromorphone HCl 0.5 mg 03/06/17 22:25 03/06/17 22:34 Dilaudid Injection - IVPUSH 03/06/17 22:26 0.5 mg ONCE ONE Administration Hydromorphone HCl 2 mg 03/07/17 03:05 03/07/17 03:47 Dilaudid Injection - IVPUSH 03/07/17 03:06 2 mg ONCE ONE Administration Sodium Chloride 1,000 mls @ 1,000 mls/hr 03/06/17 20:39 03/06/17 21:04 Normal Saline - IV 03/06/17 21:38 1,000 mls/hr ASDIR STA Administration Ondansetron HCl 4 mg 03/06/17 20:46 03/06/17 21:04 Zofran Injection IVPB 03/06/17 20:47 4 mg ONCE ONE Administration Oxycodone/Acetaminophen 1 combo 03/07/17 01:32 03/07/17 02:33 Percocet 5/325 - PO 03/07/17 01:33 1 combo ONCE ONE Administration Medical Decision Making - Medical Decision Making 03/07/17 08:18 Patient with history of chronic pancreatitis. Mild pancreatitis noted on CAT scan. No fever no white count pain improved the pain medications We'll discharge home with 2 day course of pain meds clear liquid diet. Patient will follow-up with her advertising director later today Patient return to the emergency department if she is unable to tolerate fluids for severe worsening symptoms or for any concerns. *DC/Admit/Observation/Transfer Diagnosis at time of Disposition: Abdominal pain Pancreatitis Qualifiers: Chronicity: chronic Pancreatitis type: idiopathic Qualified Code(s): K86.1 - Other chronic pancreatitis - Discharge Dispostion Disposition: HOME Condition at time of disposition: Stable - Prescriptions - Referrals - Patient Instructions - Post Discharge Activity
--- NOTE | 2017-03-07 14:55 | EKG ---
Test Reason : Blood Pressure : / mmHG Vent. Rate : 052 BPM Atrial Rate : 052 BPM P-R Int : 198 ms QRS Dur : 086 ms QT Int : 486 ms P-R-T Axes : 026 -17 -07 degrees QTc Int : 451 ms SINUS BRADYCARDIA MINIMAL VOLTAGE CRITERIA FOR LVH, MAY BE NORMAL VARIANT INFERIOR INFARCT , AGE UNDETERMINED POSSIBLE ANTERIOR INFARCT , AGE UNDETERMINED ABNORMAL ECG WHEN COMPARED WITH ECG OF 06-JUN-2012 09:50, VENT. RATE HAS INCREASED Confirmed by STEPHANIE CH MD ([id number]) on 03/07/2017 2:55:24 PM Referred By: Confirmed By:STEPHANIE CH MD
[2017-03-07 18:50] LABS: URINE LEUK ESTERASE NEGATIVE (NEGATIVE)
== END 2017-03-07 08:40 | disposition home or self-care (01) ==
LOC: JER 20:18 → UNDOADMOB 23:58 → JERBED 23:58
PROC: 3E033NZ Introduction of Analgesics, Hypnotics, Sedatives into Peripheral Vein, Percutaneous Approach (ICD-10-PCS; principal; 2017-03-06)
PROC: 3E033GC Introduction of Other Therapeutic Substance into Peripheral Vein, Percutaneous Approach (ICD-10-PCS; 2017-03-06)
PROC: 3E0337Z Introduction of Electrolytic and Water Balance Substance into Peripheral Vein, Percutaneous Approach (ICD-10-PCS; 2017-03-06)
DX: K86.1 Other chronic pancreatitis (principal); I10 Essential (primary) hypertension; E78.5 Hyperlipidemia, unspecified
CPT/HCPCS: 36415; 71010-TC; 74176-TC; 80053; 81003; 81015; 82550; 83690; 84478; 84484; 85025; 93005; 93010; 99281-25

== ENCOUNTER 2017-03-08 17:31 | Emergency (ER) | payer OTHER ==
--- NOTE | 2017-03-08 17:51 | PDOC ---
Rapid Medical Evaluation Time Seen by Provider: 03/08/17 17:49 Medical Evaluation: Allergies Allergy/AdvReac Type Severity Reaction Status Date / Time No Known Allergies Allergy Verified 03/06/17 20:23 03/08/17 17:49 The patient presents with a chief complaint of: ruq/ rt flank pain, recent pancreatitis , no etoh use I have performed a brief in-person evaluation of this patient. Pertinent physical exam findings: vss I have ordered the following: cbc, comp, lipase The patient will proceed to the ED for further evaluation. Discharge Disposition - Diagnosis Pancreatitis Abdominal pain Qualifiers: Abdominal location: right upper quadrant Qualified Code(s): R10.11 - Right upper quadrant pain - Discharge Dispostion Disposition: HOME Condition at time of disposition: Stable - Prescriptions Prescriptions: Metoclopramide HCl [Reglan] 10 mg PO TID #60 tablet Oxycodone HCl 5 mg PO Q8H #10 tablet MDD 3 - Referrals Referrals: Rohit Johnson MD [Staff Physician] - Luigi Wells MD [Primary Care Provider] - - Patient Instructions Printed Discharge Instructions: [place] Diet, DI for Pancreatitis Additional Instructions: Please keep the appointment you have made for the 16 of March. Take medication as directed. Avoid alcohol or driving when taking Oxycodone. Continue with a bland diet to tolerate orally Return if any problems. Print Language: HAITIAN - Post Discharge Activity
[2017-03-08 17:54] VITALS: BP 174/92; PULSE 76; TEMP 98; BMI 31.6
[2017-03-08 18:16] LABS: BASOPHIL 0.7 % (0-2.0); EOSINOPHIL 1.8 % (0-4.5); MCH 30.9 pg (25.7-33.7); MCHC 33.4 g/dl (32.0-36.0); MEAN CELL VOLUME 92.7 fl (80-96); MEAN PLT VOLUME 9.1 fl (7.5-11.1); NEUTROPHILS 71.4 % (42.8-82.8); PLATELET COUNT 296 K/MM3 (134-434); RDW 13.2 % (11.6-15.6); WHITE BLOOD COUNT 9.4 K/mm3 (4.0-10.0)
[2017-03-08 18:17] LABS: URINE APPEARANCE CLOUDY; URINE BILIRUBIN NEGATIVE (NEGATIVE); URINE BLOOD 2+ (NEGATIVE); URINE COLOR YELLOW; URINE GLUCOSE (UA) NEGATIVE (NEGATIVE); URINE KETONE NEGATIVE (NEGATIVE); URINE NITRITE NEGATIVE (NEGATIVE); URINE PROTEIN NEGATIVE (NEGATIVE); URINE UROBILINOGEN NEGATIVE mg/dL (0.2-1.0)
[2017-03-08 18:29] LABS: URINE LEUK ESTERASE 3+ (NEGATIVE)
[2017-03-08 18:30] LABS: CALCIUM OXALATE CRYSTALS RARE /hpf (NONE SEEN); URINE BACTERIA MODERATE /hpf (NONE SEEN); URINE HYALINE CAST 1 /lpf; URINE MUCUS RARE; URINE RBC 11 /hpf (0-3); URINE WBC 73 /hpf (3-5); YEAST RARE
[2017-03-08 18:54] LABS: ALBUMIN 3.8 g/dl (3.4-5.0); ALK PHOS 99 U/L (45-117); AMYLASE 88 U/L (25-115); ANION GAP 6 (8-16); BILIRUBIN,TOTAL 0.2 mg/dL (0.2-1.0); CALCIUM 9.2 mg/dL (8.5-10.1); CO2 28 mmol/L (21-32); CREATININE 0.9 mg/dL (0.55-1.02); GLUCOSE,RANDOM 136 mg/dL (74-106); SGPT/ALT 20 U/L (12-78); TOT PROT 7.8 g/dl (6.4-8.2)
[2017-03-08 18:57] LABS: SGOT/AST 4 U/L (15-37)
--- NOTE | 2017-03-08 20:03 | PDOC ---
History of Present Illness - General History Source: Patient - History of Present Illness Initial Comments: 03/08/17 20:09 The patient is a 57 year old female, with a significant past medical history of HTN, NIDDM, HLD, cholycystectomy, pancreatitis (diagnosed yesterday, 03/07/17, previous admission on 01/03-01/06), who presents to the emergency department with persistent right upper quadrant and epigastric pain despite taking Tramadol. The patient states she has been taking Tramadol with little to no relief of her pain. She states she has taken all of her tramadol and requests a Rx for pain medication. The patient reports she is also nauseous, but denies vomiting. The patient states she has an appointment with her foreclosure clerk , Dr. Johnson, on 03/16, however presents today for intractable pain. She denies chest pain, shortness of breath, headache and dizziness. She denies fever, chills, vomit, diarrhea and constipation. She denies dysuria, frequency, urgency and hematuria. Allergies: NKDA Past surgical history: cholecystectomy Social history: Pt denies toxic habits GI: Dr. Johnson <Mitzi Jolly - Last Filed: 03/08/17 20:49> - General History Source: Patient <Ramo Cam - Last Filed: 03/08/17 21:03> - General Chief Complaint: Pain, Acute Stated Complaint: ABDOMINAL PAIN Time Seen by Provider: 03/08/17 17:49 Past History <Mitzi Jolly - Last Filed: 03/08/17 20:49> - Past Medical History COPD: No Diabetes: Yes GI Disorders: Yes (pancreatitis) HTN: Yes - Surgical History Cholecystectomy: Yes - Suicide/Smoking/Psychosocial Hx Smoking Status: No Smoking History: Former smoker Have you smoked in the past 12 months: No Number of Cigarettes Smoked Daily: 0 Information on smoking cessation initiated: No Hx Alcohol Use: Yes Drug/Substance Use Hx: No Substance Use Type: Alcohol Hx Substance Use Treatment: No <Ramo Cam - Last Filed: 03/08/17 21:03> - Past Medical History Allergies/Adverse Reactions: Allergies Allergy/AdvReac Type Severity Reaction Status Date / Time No Known Allergies Allergy Verified 03/08/17 17:51 Home Medications: Ambulatory Orders Metformin HCl [Glucophage -] 500 mg PO DAILY 01/03/17 Ursodiol [Actigal -] 300 mg PO DAILY 01/03/17 Amlodipine Besylate [Norvasc -] 10 mg PO DAILY #30 tablet 01/06/17 Pantoprazole Sodium [Protonix] 40 mg PO BID #20 tablet. 01/06/17 Tramadol HCl 50 mg PO TID #6 tablet MDD 3 03/07/17 Metoclopramide HCl [Reglan] 10 mg PO TID #60 tablet 03/08/17 Oxycodone HCl 5 mg PO Q8H #10 tablet MDD 3 03/08/17 Review of Systems - Review of Systems Able to Perform ROS?: Yes Comments:: 03/08/17 20:09 CONSTITUTIONAL: Absent: fever, chills, diaphoresis, generalized weakness, malaise, loss of appetite HEENT: Absent: rhinorrhea, nasal congestion, throat pain, throat swelling, difficulty swallowing, mouth swelling, ear pain, eye pain, visual Changes CARDIOVASCULAR: Absent: chest pain, syncope, palpitations, irregular heart rate, lightheadedness , peripheral edema RESPIRATORY: Absent: cough, shortness of breath, dyspnea with exertion, orthopnea, wheezing, stridor, hemoptysis GASTROINTESTINAL: (+) RUQ and epigastric abdominal pain, nausea, Absent: abdominal distension, vomiting, diarrhea, constipation, melena, hematochezia GENITOURINARY: Absent: dysuria, frequency, urgency, hesitancy, hematuria, flank pain, genital pain MUSCULOSKELETAL: Absent: myalgia, arthralgia, joint swelling SKIN: Absent: rash, itching, pallor HEMATOLOGIC/IMMUNOLOGIC: Absent: easy bleeding, easy bruising, lymphadenopathy, frequent infections ENDOCRINE: Absent: unexplained weight gain, unexplained weight loss, heat intolerance, cold intolerance NEUROLOGIC: Absent: headache, focal weakness or paresthesias, dizziness, unsteady gait, seizure, mental status changes, bladder or bowel incontinence PSYCHIATRIC: Absent: anxiety, depression, suicidal or homicidal ideation, hallucinations. <Mitzi Jolly - Last Filed: 03/08/17 20:49> *Physical Exam - Vital Signs Last Vital Signs Temp Pulse Resp BP Pulse Ox 98 F 76 18 174/92 99 03/08/17 17:51 03/08/17 17:51 03/08/17 17:51 03/08/17 17:51 03/08/17 17:51 - Physical Exam Comments: 03/08/17 20:10 GENERAL: Well developed, well nourished. Awake and alert. No acute distress. HEENT: Normocephalic, atraumatic. PERRLA, EOMI. No conjunctival pallor. Sclera are non- icteric. Moist mucous membranes. Oropharynx is clear. NECK: Supple. Full ROM. No JVD. Carotid pulses 2+ and symmetric, without bruits. No thyromegaly. No lymphadenopathy. CARDIOVASCULAR: Regular rate and rhythm. No murmurs, rubs, or gallops. Distal pulses are 2+ and symmetric. PULMONARY: No evidence of respiratory distress. Lungs clear to auscultation bilaterally. No wheezing, rales or rhonchi. ABDOMINAL: Soft. Non-tender. Non-distended. No rebound or guarding. No organomegaly. Normoactive bowel sounds. MUSCULOSKELETAL Normal range of motion at all joints. No bony deformities or tenderness. No CVA tenderness. EXTREMITIES: No cyanosis. No clubbing. No edema. No calf tenderness. SKIN: Warm and dry. Normal capillary refill. No rashes. No jaundice. NEUROLOGICAL: Alert, awake, appropriate. Cranial nerves 2-12 intact. Normoreflexic in the upper and lower extremities. Normal speech. Toes are down-going bilaterally. Gait is normal without ataxia. PSYCHIATRIC: Cooperative. Good eye contact. Appropriate mood and affect. <Mitzi Jolly - Last Filed: 03/08/17 20:49> - Vital Signs Last Vital Signs Temp Pulse Resp BP Pulse Ox 98 F 76 18 174/92 99 03/08/17 17:51 03/08/17 17:51 03/08/17 17:51 03/08/17 17:51 03/08/17 17:51 <Ramo Cam - Last Filed: 03/08/17 21:03> ED Treatment Course - LABORATORY CBC & Chemistry Diagram: 03/08/17 18:08 03/08/17 18:08 - ADDITIONAL ORDERS Additional order review: Laboratory Results 03/08/17 03/08/17 18:11 18:08 Sodium 137 Potassium 4.4 Chloride 103 Carbon Dioxide 28 Anion Gap 6 L BUN 25 H D Creatinine 0.9 Creat Clearance w eGFR > 60 Random Glucose 136 H Calcium 9.2 Total Bilirubin 0.2 AST 4 L D ALT 20 Alkaline Phosphatase 99 Total Protein 7.8 Albumin 3.8 Total Amylase 88 D Lipase 830 H Urine Color Yellow Urine Appearance Cloudy Urine pH 5.0 D Ur Specific [place] 1.023 Urine Protein Negative Urine Glucose (UA) Negative Urine Ketones Negative Urine Blood 2+ H Urine Nitrite Negative Urine Bilirubin Negative Urine Urobilinogen Negative Urine WBC (Auto) 73 Urine RBC (Auto) 11 Ur Epithelial Cells Moderate Calcium Oxalate Crystal Rare Urine Bacteria Moderate Hyaline Casts 1 Urine Mucus Rare Urine Yeast Rare 03/08/17 18:08 RBC 3.91 MCV 92.7 MCHC 33.4 RDW 13.2 MPV 9.1 Neutrophils % 71.4 Lymphocytes % 19.3 D Monocytes % 6.8 Eosinophils % 1.8 Basophils % 0.7 - Medications Given in the ED: ED Medications Discontinued Medications Generic Name Dose Route Start Last Admin Trade Name Freq PRN Reason Stop Dose Admin Oxycodone/Acetaminophen 2 combo 03/08/17 19:59 03/08/17 20:07 Percocet 5/325 - PO 03/08/17 20:00 2 combo ONCE ONE Administration <Mitzi Jolly - Last Filed: 03/08/17 20:49> - LABORATORY CBC & Chemistry Diagram: 03/08/17 18:08 03/08/17 18:08 - ADDITIONAL ORDERS Additional order review: Laboratory Results 03/08/17 03/08/17 18:11 18:08 Sodium 137 Potassium 4.4 Chloride 103 Carbon Dioxide 28 Anion Gap 6 L BUN 25 H D Creatinine 0.9 Creat Clearance w eGFR > 60 Random Glucose 136 H Calcium 9.2 Total Bilirubin 0.2 AST 4 L D ALT 20 Alkaline Phosphatase 99 Total Protein 7.8 Albumin 3.8 Total Amylase 88 D Lipase 830 H Urine Color Yellow Urine Appearance Cloudy Urine pH 5.0 D Ur Specific [place] 1.023 Urine Protein Negative Urine Glucose (UA) Negative Urine Ketones Negative Urine Blood 2+ H Urine Nitrite Negative Urine Bilirubin Negative Urine Urobilinogen Negative Urine WBC (Auto) 73 Urine RBC (Auto) 11 Ur Epithelial Cells Moderate Calcium Oxalate Crystal Rare Urine Bacteria Moderate Hyaline Casts 1 Urine Mucus Rare Urine Yeast Rare 03/08/17 18:08 RBC 3.91 MCV 92.7 MCHC 33.4 RDW 13.2 MPV 9.1 Neutrophils % 71.4 Lymphocytes % 19.3 D Monocytes % 6.8 Eosinophils % 1.8 Basophils % 0.7 <Ramo Cam - Last Filed: 03/08/17 21:03> Medical Decision Making - Medical Decision Making 03/08/17 20:06 Dr. Cam: The scribe's documentation has been prepared under my direction and personally reviewed by me in its entirery. I confirm that the note above accurately reflects all work, treatment, procedures, and medical decision making performed by me. Patient with recurrent pancreatitis. States has pain since she ran out of pain medication. Patiently currently has appointment for GI follow up. Labs drawn are still stable. Pt currently afebrile. Pt to be discharged, to follow up with pcp and her GI appointment <Ramo Cam - Last Filed: 03/08/17 21:03> *DC/Admit/Observation/Transfer - Attestations Scribe Attestion: 03/08/17 20:10 Documentation prepared by Mitzi Jolly, acting as biomedical equipment specialist for Ramo Cam DO <Mitzi Jolly - Last Filed: 03/08/17 20:49> - Discharge Dispostion Admit: No <Ramo Cam - Last Filed: 03/08/17 21:03> Diagnosis at time of Disposition: Abdominal pain Qualifiers: Abdominal location: right upper quadrant Qualified Code(s): R10.11 - Right upper quadrant pain Pancreatitis Qualifiers: Chronicity: acute Acute pancreatitis complication: unspecified - Discharge Dispostion Disposition: HOME Condition at time of disposition: Stable - Prescriptions Prescriptions: Metoclopramide HCl [Reglan] 10 mg PO TID #60 tablet Oxycodone HCl 5 mg PO Q8H #10 tablet MDD 3 - Referrals Referrals: Luigi Wells MD [Primary Care Provider] - Rohit Johnson MD [Staff Physician] - - Patient Instructions Printed Discharge Instructions: Webb Diet, DI for Pancreatitis Additional Instructions: Please keep the appointment you have made for the 16 of March. Take medication as directed. Avoid alcohol or driving when taking Oxycodone. Continue with a bland diet to tolerate orally Return if any problems. Print Language: TELUGU - Post Discharge Activity
[2017-03-08 22:28] LABS: URINE LEUK ESTERASE 3+ (NEGATIVE)
== END 2017-03-08 22:59 | disposition home or self-care (01) ==
LOC: JER 17:31
DX: K85.90 Acute pancreatitis without necrosis or infection, unspecified (principal); I10 Essential (primary) hypertension; E11.9 Type 2 diabetes mellitus without complications; E78.00 Pure hypercholesterolemia, unspecified; Z90.49 Acquired absence of other specified parts of digestive tract
CPT/HCPCS: 36415; 80053; 81003; 81015; 82150; 83690; 85025; 99281-25

== ENCOUNTER 2022-08-24 13:40 | Emergency (ER) | payer OTHER ==
[2022-08-24 13:45] VITALS: BMI 30.7
[2022-08-24] MEDS ORDERED: ONDANSETRON 4 MG/2 ML VIAL IVPUSH ONE (14:47)
[2022-08-24] MEDS: SODIUM CHLORIDE 0.9% 1000 ML INFUS.BAG IV ONE ×2 (15:27→16:16)
[2022-08-24] MEDS: FAMOTIDINE 20 MG/50 ML IVPB 20 MG/50 ML MG IVPB ONE ×2 (15:27→16:17)
[2022-08-24] MEDS: ACETAMINOPHEN 1000 MG/100 ML BAG IVPB ONE ×2 (15:27→16:16)
[2022-08-24] MEDS ORDERED: ONDANSETRON 4 MG/2 ML VIAL ONE (15:29)
[2022-08-24] MEDS ORDERED: ACETAMINOPHEN INJECTION 100 ML IVPB ONE (15:29)
[2022-08-24] MEDS ORDERED: FAMOTIDINE 20 MG/50 ML IVPB 20 MG/50 ML MG IVPB ONE (15:38)
[2022-08-24] MEDS ORDERED: morphine CARPU-JECT 2 MG/1 ML DISP.SYRIN IVPUSH ONE (16:36)
[2022-08-24 17:02] LABS: URINE APPEARANCE CLOUDY; URINE BILIRUBIN NEGATIVE (NEGATIVE); URINE COLOR YELLOW; URINE GLUCOSE (UA) NEGATIVE (NEGATIVE); URINE KETONE NEGATIVE (NEGATIVE); URINE LEUK ESTERASE NEGATIVE (NEGATIVE); URINE NITRITE NEGATIVE (NEGATIVE); URINE PROTEIN NEGATIVE (NEGATIVE)
[2022-08-24 17:05] LABS: BASO % 0.4 % (0-2.0); EOS % 1.7 % (0-4.5); HEMOGLOBIN 12.1 GM/dL (10.7-15.3); MCH 31.3 pg (25.7-33.7); MCHC 33.5 g/dl (32.0-36.0); MEAN CELL VOLUME 93.5 fl (80-96); MEAN PLT VOLUME 9.3 fl (7.5-11.1); MONO % 5.2 % (3.8-10.2); NEUT % 68.7 % (42.8-82.8); PLATELET COUNT 338 10^3/uL (134-434); RBC 3.85 M/mm3 (3.60-5.2); RDW 14.2 % (11.6-15.6); WHITE BLOOD COUNT 9.1 K/mm3 (4.0-10.0)
[2022-08-24 17:09] LABS: INR 1.03 (0.83-1.09)
[2022-08-24 17:11] LABS: LACTIC ACID 2.5 mmol/L (0.4-2.0)
[2022-08-24 17:12] LABS: ACTIVATED PTT 32.2 SECONDS (25.2-36.5)
[2022-08-24 17:25] LABS: POTASSIUM 4.7 mmol/L (3.5-5.1)
[2022-08-24 17:29] LABS: MAGNESIUM 2.3 mg/dL (1.8-2.4)
[2022-08-24 17:30] LABS: BLOOD UREA NITROGEN 33.7 mg/dL (7-18); CALCIUM 10.4 mg/dL (8.5-10.1)
[2022-08-24 17:31] LABS: ALBUMIN 4.4 g/dl (3.4-5.0)
[2022-08-24 17:32] LABS: CREATININE 1.3 mg/dL (0.55-1.3)
[2022-08-24 17:34] LABS: TOT PROT 8.2 g/dl (6.4-8.2)
[2022-08-24 17:35] LABS: BILIRUBIN,TOTAL 0.4 mg/dL (0.2-1)
[2022-08-24] MEDS ORDERED: LACTATED RINGERS SOLUTION 1000 ML INFUS.BAG IV ONE (18:56)
[2022-08-24 21:15] VITALS: BP 142/87; PULSE 62; RESP 14; TEMP 98.6
== END 2022-08-24 23:58 | disposition home or self-care (01) ==
LOC: JER 13:40
PROC: 3E033GC Introduction of Other Therapeutic Substance into Peripheral Vein, Percutaneous Approach (ICD-10-PCS; principal; 2022-08-24)
PROC: 3E033NZ Introduction of Analgesics, Hypnotics, Sedatives into Peripheral Vein, Percutaneous Approach (ICD-10-PCS; 2022-08-24)
PROC: 3E033GC Introduction of Other Therapeutic Substance into Peripheral Vein, Percutaneous Approach (ICD-10-PCS; 2022-08-24)
PROC: 3E033GC Introduction of Other Therapeutic Substance into Peripheral Vein, Percutaneous Approach (ICD-10-PCS; 2022-08-24)
DX: R10.11 Right upper quadrant pain (principal); R00.2 Palpitations; R11.0 Nausea; R68.83 Chills (without fever)
CPT/HCPCS: 36415; 74177-TC; 80053; 80061; 81003; 83605; 83690; 83735; 84484; 85025; 85610; 85730; 93005; 93010; 99285-25; Q9967

== ENCOUNTER 2023-06-09 10:31 | Emergency (ER) | payer OTHER ==
[2023-06-09 10:40] VITALS: BP 155/83; PULSE 75; RESP 17; TEMP 98; BMI 31.0
== END 2023-06-09 14:46 | disposition home or self-care (01) ==
LOC: JER 10:31
DX: R20.0 Anesthesia of skin (principal); R20.2 Paresthesia of skin; M79.2 Neuralgia and neuritis, unspecified
CPT/HCPCS: 36415; 82962; 84484; 93005; 93010; 99284-25

== ENCOUNTER 2023-10-17 10:06 | Emergency (ER) | payer OTHER ==
[2023-10-17 10:12] VITALS: RESP 18; TEMP 97.8; BMI 31.0
[2023-10-17 10:55] LABS: BASO % 0.8 % (0-2.0); HEMOGLOBIN 12.7 GM/dL (10.7-15.3); LYMPH % 25.7 % (8-40); MCH 31.1 pg (25.7-33.7); MCHC 33.4 g/dl (32.0-36.0); MEAN CELL VOLUME 93.1 fl (80-96); MEAN PLT VOLUME 9.1 fl (7.5-11.1); MONO % 5.4 % (3.8-10.2); NEUT % 66.1 % (42.8-82.8); PLATELET COUNT 326 10^3/uL (134-434); RBC 4.08 M/mm3 (3.60-5.2); RDW 13.9 % (11.6-15.6); WHITE BLOOD COUNT 7.4 K/mm3 (4.0-10.0)
[2023-10-17] MEDS ORDERED: ACETAMINOPHEN 325 MG TABLET (FP) ONE (10:55)
[2023-10-17] MEDS: ACETAMINOPHEN 500 MG TABLET (FP) PO ONE (11:01)
[2023-10-17 11:02] LABS: INR 0.93 (0.83-1.09); PROTHROMBIN TIME (PATIENT) 10.7 SEC (9.7-13.0)
[2023-10-17 11:16] LABS: POTASSIUM 4.9 mmol/L (3.5-5.1)
[2023-10-17 11:18] LABS: CALCIUM 10.1 mg/dL (8.5-10.1)
[2023-10-17 11:19] LABS: ALBUMIN 4.3 g/dl (3.4-5.0); BLOOD UREA NITROGEN 46.2 mg/dL (7-18); MAGNESIUM 2.5 mg/dL (1.8-2.4)
[2023-10-17 11:23] LABS: BILIRUBIN,TOTAL 0.4 mg/dL (0.2-1)
[2023-10-17 11:25] LABS: CREATININE 1.6 mg/dL (0.55-1.3)
[2023-10-17 11:27] LABS: N-TERMINAL BNP 33.5 pg/ml (5-125)
[2023-10-17 12:32] VITALS: BP 153/86; PULSE 64
== END 2023-10-17 12:40 | disposition home or self-care (01) ==
LOC: JER 10:06
DX: R06.02 Shortness of breath (principal); R07.89 Other chest pain; M79.89 Other specified soft tissue disorders; R51.9 Headache, unspecified
CPT/HCPCS: 36415; 71046-TC-FY; 80053; 83735; 83880; 84484; 85025; 85610; 93005; 93010; 99285-25